=== PATIENT | female | born 1965 | race Native Hawaiian/Other Pacific Islander ===

== ENCOUNTER 2016-03-25 19:07 | Inpatient (IN) | payer OTHER ==
[~2016-03-25] VITALS: Ht 154.9 cm; Wt 60.8 kg
[~2016-03-25 19:07] MED LIST: AMLO2.5T PO; ASPI325T40 PO; ATENOLOL100 M1 PO; IMDUR30 MG PO; LISI20TA11 PO; LYRICA100 MG PO; NEXIUM40 M1 PO; PLAVIX75 MG PO; PRAVACHOL20 MG PO; RANO500T PO; TEMA30CA18 PO; UNITH DIRECT50 MCG PO; XANAX XR1 MG PO
[2016-03-25 19:27] VITALS: BP 131/80; TEMP 98.2
[2016-03-25 20:35] LABS: PLATELET COUNT 329 K/uL (152-353)
[2016-03-25 20:58] LABS: POTASSIUM 3.3 mmol/L (3.6-5.2)
[2016-03-25 21:15] LABS: SODIUM 112 mmol/L (136-145)
[2016-03-25] MEDS ORDERED: OMEP40CA PO (22:45)
[2016-03-25 23:21] VITALS: BP 122/71; TEMP 97.7; Ht 154.9 cm; Wt 60.8 kg
[2016-03-26] VITALS (15 sets, daily range): BP systolic 85–142; BP diastolic 41–87; TEMP 97.6–98.4
[2016-03-26 05:55] LABS: PLATELET COUNT 297 K/uL (152-353)
[2016-03-26 08:33] LABS: POTASSIUM 4.1 mmol/L (3.6-5.2); SODIUM 126 mmol/L (136-145)
--- NOTE | 2016-03-26 14:09 | NUR ---
REPORT GIVEN TO SANTOSH GONZALEZ RN. Pt. TRANSFERRED TO ICU DUE TO ABNORMAL SODIUM LEVEL.
--- NOTE | 2016-03-26 14:09 | NUR ---
RECEIVED PT FROM [facility] RM 1111 VIA W/C. PT ASSISTED TO BED. ORIENTED TO ICU.PLACED ON MONITOR.FAMILY IN TO VISIT.
--- NOTE | 2016-03-26 15:22 | NUR ---
LABS DRAWN & TO LAB.
--- NOTE | 2016-03-26 15:45 | NUR ---
LABS DRAWN & FLU SWAB OBTAINED & TO LAB.
[2016-03-26 15:49] LABS: POTASSIUM 4.5 mmol/L (3.6-5.2); SODIUM 130 mmol/L (136-145)
--- NOTE | 2016-03-26 16:33 | NUR ---
LABS CALLED TO MICHELLE HILL LPN/MATTHEW FOR DR DUMONT.
--- NOTE | 2016-03-26 16:40 | NUR ---
D5NS INCREASED TO 200 ML/HR PER DRS. CONTRERAS
--- NOTE | 2016-03-26 18:30 | NUR ---
PT FED SELF DINNER, DENIES PAIN OR DISTRESS. IV INFUSING D5W AT 200 ML/HR.
[2016-03-26 19:01] LABS: POTASSIUM 3.7 mmol/L (3.6-5.2); SODIUM 131 mmol/L (136-145)
--- NOTE | 2016-03-26 20:00 | NUR ---
MARYANN CABRERA TALKED TO DR. DUMONT ABOUT HER PT. TOLD HIM ABOUT NA ON THIS PT. ORDERED TO INCREASE D5W TO 250ML/HR. PM ASSESS. I WAS DOING AT THE TIME. PT. BACK AND FORTH ON BS COMMODE DUE TO IV FLUIDS ALREADY GOING AT 200ML/HR. DENIES PAIN OR DISCOMFORT.
--- NOTE | 2016-03-26 21:00 | NUR ---
D5W INCREASED TO 250ML/HR ORDERED.
--- NOTE | 2016-03-26 22:40 | NUR ---
BMP DRAWN ORDERED TO CALL DR. DUMONT BACK RESULTS.
[2016-03-26 23:03] LABS: POTASSIUM 4.2 mmol/L (3.6-5.2); SODIUM 130 mmol/L (136-145)
--- NOTE | 2016-03-26 23:30 | NUR ---
PT. C/O OF BOTH SHOULDERS DRAWING, SHE TOLD ME, "I DO NOT LIKE ANYONE MESSING WITH MY MEDICATION. I WANT MY XANAX. I TOLD HER WHEN I CALL DR. DUMONT ABOUT HER LAB I EDGARDO EARLIER I WILL ASK HIM FOR A XANAX TONIGHT FOR YOU.
--- NOTE | 2016-03-26 23:45 | NUR ---
CALLED DR. DUMONT BACK PTS SODIUM. I TOLD HIM PT. UPSET BECAUSE SHE DOES NOT HAVE A XANAX 1MG TO TAKE TONIGHT. SHE HAS TAKEN THEM FOR 12 YEARS TWICE/DAY. NEW ORDER GIVEN.
[2016-03-27] VITALS (13 sets, daily range): BP systolic 86–135; BP diastolic 43–86; TEMP 97.9–98.2
--- NOTE | 2016-03-27 01:00 | NUR ---
PT ASLEEP, RESPIRATIONS EVEN AND UNLABORED.
--- NOTE | 2016-03-27 02:52 | NUR ---
PT. AWAKE AND UP TO BS COMMODE AND BACK IN BED. NO C/O OF TIGHTNESS AND TOLERATED GETTING UP AND BACK IN BED FINE.
--- NOTE | 2016-03-27 03:48 | NUR ---
LAB IN TO DRAW HER BLOOD AND PT. NEVER WOKE UP. RESP. EVEN AND UNLABORED AND PT. ON RT. SIDE.
[2016-03-27 03:55] LABS: PLATELET COUNT 280 K/uL (152-353)
--- NOTE | 2016-03-27 04:00 | NUR ---
PT. AWAKE GOT UP ON BS COMMODE AND VOID AND BACK IN BED WITH OUT DIFFICULTY.
[2016-03-27 04:10] LABS: POTASSIUM 3.6 mmol/L (3.6-5.2); SODIUM 129 mmol/L (136-145)
--- NOTE | 2016-03-27 06:43 | NUR ---
WT 141.1 ON BED SCALES.
--- NOTE | 2016-03-27 07:00 | NUR ---
REPORT FOM PM STAFF. PT RESTING IN LOW FOWLERS. DENIES PAIN OR DISCOMFORT.
--- NOTE | 2016-03-27 09:30 | NUR ---
PT UP TOBSC t INTERVALS. DENIES PAIN OR DISTRESS. NEURO CK WITHIN NL.
--- NOTE | 2016-03-27 11:30 | NUR ---
DR DUMONT IN TO SEE PT. PT TO BE TRANSFERRED TO MED SURG FLOOR. IV FLUIDS D/C'D.
--- NOTE | 2016-03-27 13:30 | NUR ---
REPORT TO JHONATAN MONROY RN.
--- NOTE | 2016-03-27 13:45 | NUR ---
Pt. TRANSFERRED TO ROOM 1106 FROM ICU.
--- NOTE | 2016-03-27 13:45 | NUR ---
PT TRANSFERRED STABLE VIA W/C TO RM 1106 PER RICHI CASTORENA. FAMILY NOTIFIED PER PT.
--- NOTE | 2016-03-27 16:00 | NUR ---
Pt. DAUGHTER TO NURSES AGA REQUESTING AMA PAPER FOR MOTHER TO LEAVE. WENT AND TALKED WITH MOTHER. Pt. MOTHER SAID WE HAVE HER AN APPOINTMENT WITH HER IN [place] TOMORROW MORNING. DAUGHTER SAID HER MOTHER HEARD SOMEONE TALKING ABOUT HERE AT THE NURSES STATION. NOTIFIED MAURICE WYMAN RN.
--- NOTE | 2016-03-27 16:09 | NUR ---
MAURICE WYMAN RN NOTIFIED DR. DUMONT Pt. IS DEMANDING TO SIGN OUT AMA.
--- NOTE | 2016-03-27 16:22 | NUR ---
Pt. SIGNED OUT AMA. MOTHER AND DAUGHTER AT BEDSIDE. Pt. TO SEE PCP IN [place] IN AM.
--- NOTE | 2016-03-27 16:56 | NUR ---
Pt. IV D/C'd. NO REDNESS OR EDEMA OBSERVED. Pt. EXIT OUT OF ER EXIT VIA WC.
== END 2016-03-27 16:56 | disposition left against medical advice (07) | DRG 641 ==
LOC: ED 19:07 → MED/SURG 22:00 → ICU 03-26 14:05 → MED/SURG 03-27 13:45
PROVIDERS: Internal Medicine; ADMIT Emergency Medicine
DX: E87.1 Hypo-osmolality and hyponatremia (principal); E87.6 Hypokalemia; R11.2 Nausea with vomiting, unspecified; E86.0 Dehydration; R07.89 Other chest pain; A08.8 Other specified intestinal infections
CPT/HCPCS: 36415; 80048; 80053; 81000; 82550; 82553; 84484; 85027; 85651; 86039; 86140; 87804; 96361; 96374; 99284; J2405

== ENCOUNTER 2020-02-03 10:30 | Outpatient (CLI) | payer OTHER ==
[~2020-02-03 10:30] MED LIST changes: +OMEP40CA PO
== END 2020-02-03 21:00 | disposition home or self-care (01) ==
LOC: MRI 10:30
PROVIDERS: ATTEND Pain Medicine Interventional Pain Medicine
DX: M54.12 Radiculopathy, cervical region (principal)

== ENCOUNTER 2020-03-15 08:43 | Outpatient (CLI) | payer OTHER | END 2020-03-15 19:53 | disposition home or self-care (01) | LOC: MRI 08:43 | PROVIDERS: ATTEND Pain Medicine Interventional Pain Medicine | DX: M54.16 Radiculopathy, lumbar region (principal); M54.5 Low back pain ==

== ENCOUNTER 2020-03-27 15:13 | Outpatient (CLI) | payer OTHER | END 2020-03-27 21:13 | disposition home or self-care (01) | LOC: EMG 15:13 | PROVIDERS: ATTEND Pain Medicine Interventional Pain Medicine | DX: M54.12 Radiculopathy, cervical region (principal); M54.16 Radiculopathy, lumbar region | CPT/HCPCS: 95861; 95912 ==

== ENCOUNTER 2021-12-10 09:22 | Outpatient (CLI) | payer OTHER | END 2021-12-10 20:20 | disposition home or self-care (01) | LOC: RAD 09:22 | PROVIDERS: ATTEND Registered Nurse | DX: R79.89 Other specified abnormal findings of blood chemistry (principal) ==